=== PATIENT | female | born 1965 | race African-American/Black ===

== ENCOUNTER 2017-09-19 23:17 | Emergency (ER) | payer SELFPAY ==
[~2017-09-19] VITALS: Ht 167.6 cm; Wt 77.8 kg
[2017-09-20 01:03] LABS: BASOPHIL (%) 0.8 % (0-1); BASOPHIL COUNT 0.1 K/uL (0-0.1); EOSINOPHIL (%) 2.1 % (0-5); EOSINOPHIL COUNT 0.1 K/uL (0-0.3); HEMATOCRIT 39.1 % (36.0-46.0); IMMATURE GRANULOCYTE (%) 0.2 % (0.0-0.7); LYMPHOCYTE (%) 39.1 % (15-42); LYMPHOCYTE COUNT 2.4 K/uL (1.0-2.8); MCH 25.9 PG (29.0-34.0); MCHC 33.2 G/DL (30.0-36.0); MCV 77.9 FL (83-99); MONOCYTE (%) 7.9 % (3-12); MONOCYTE COUNT 0.5 K/uL (0-0.8); NEUTROPHIL (%) 49.9 % (45-76); NEUTROPHIL COUNT 3.1 K/uL (1.8-6.4); PLATELET COUNT 299 K/uL (156-360); RBC DIS.WIDTH-CV 14.6 % (11.8-14.6); RBC DIS.WIDTH-SD 40.8 % (39-53); RED BLOOD COUNT 5.02 M/uL (3.80-5.20); WHITE BLOOD COUNT 6.2 K/uL (4.1-10.2)
[2017-09-20 01:20] LABS: CHLORIDE 109 mEq/L (99-109); POTASSIUM 4.2 mEq/L (3.7-5.4); SODIUM 143 mEq/L (136-147)
[2017-09-20 01:21] LABS: GLUCOSE 144 mg/dL (70-99)
[2017-09-20 01:23] LABS: TROP-I INTERPRETATION NEGATIVE; TROPONIN-I < 0.01 ng/mL (0.0-0.30)
[2017-09-20 01:25] LABS: CREATININE 1.1 mg/dL (0.6-1.3)
[2017-09-20 01:26] LABS: UREA NITROGEN (BUN) 16 mg/dL (9-23)
[2017-09-20 01:27] LABS: GFR ESTIMATE (CALCULATED) 56 mL/min/
[2017-09-20] MEDS ORDERED: ENALAPRIL MALEA20 MG PO (04:38)
[2017-09-20] MEDS ORDERED: PROPRANOLOL HCL40 MG PO (04:38)
[2017-09-20] MEDS ORDERED: NIFEDIPINE20 MG PO (04:38)
[2017-09-20 04:47] VITALS: BP 172/97
== END 2017-09-20 04:49 | disposition home or self-care (01) ==
LOC: EME 23:17
PROVIDERS: Emergency Medicine
DX: I10 Essential (primary) hypertension (principal); R51 Headache; E11.9 Type 2 diabetes mellitus without complications
CPT/HCPCS: 70450; 80048; 84484; 85025; 93005; 99281; 99284

== ENCOUNTER 2017-10-13 17:45 | Emergency (ER) | payer OTHER ==
[~2017-10-13] VITALS: Ht 167.6 cm; Wt 77.1 kg
[~2017-10-13 17:45] MED LIST: ENALAPRIL MALEA20 MG PO; NIFEDIPINE20 MG PO; PROPRANOLOL HCL40 MG PO
[2017-10-13 19:21] LABS: HEMATOCRIT 40.3 % (36.0-46.0); HEMOGLOBIN 13.6 G/DL (11.9-15.5); MCH 26.2 PG (29.0-34.0); MCHC 33.7 G/DL (30.0-36.0); MCV 77.6 FL (83-99); PLATELET COUNT 325 K/uL (156-360); RBC DIS.WIDTH-CV 14.5 % (11.8-14.6); RBC DIS.WIDTH-SD 40.2 % (39-53); RED BLOOD COUNT 5.19 M/uL (3.80-5.20); WHITE BLOOD COUNT 8.9 K/uL (4.1-10.2)
[2017-10-13 19:32] LABS: CHLORIDE 106 mEq/L (99-109); POTASSIUM 4.1 mEq/L (3.7-5.4); SODIUM 140 mEq/L (136-147)
[2017-10-13 19:34] LABS: GLUCOSE 226 mg/dL (70-99)
[2017-10-13 19:38] LABS: CREATININE 1.2 mg/dL (0.6-1.3); GFR ESTIMATE (CALCULATED) > 59 mL/min/
[2017-10-13 19:39] LABS: UREA NITROGEN (BUN) 19 mg/dL (9-23)
[2017-10-13 20:14] LABS: THYROTROPIN (TSH) 5.5 MIU/L (0.4-5.5)
[2017-10-13] MEDS ORDERED: ENALAPRIL MALEA20 MG PO (22:13)
[2017-10-13] MEDS ORDERED: NIFEDIPINE20 MG PO (22:13)
[2017-10-13] MEDS ORDERED: INDERAL40 MG PO (22:13)
[2017-10-13 22:33] VITALS: BP 139/84
[2017-10-14] MEDS ORDERED: HUMULIN 70100 UNIT/2 SC (00:11)
[2017-10-14 11:24] LABS: HEMOGLOBIN A1c (GLYCOHEMOGLOB) 9.6 % (Below 5.7)
== END 2017-10-13 22:33 | disposition home or self-care (01) ==
LOC: EME 17:45
PROVIDERS: Physician Assistant
DX: I10 Essential (primary) hypertension (principal); Z91.14 Patient's other noncompliance with medication regimen; E11.9 Type 2 diabetes mellitus without complications; H54.7 Unspecified visual loss; Z76.0 Encounter for issue of repeat prescription
CPT/HCPCS: 80048; 81003; 82948; 83036; 84443; 84484; 85027; 99281; 99284